=== PATIENT | female | born 1995 | race Caucasian/White ===

== ENCOUNTER 2024-08-03 08:59 | Emergency (ER) | payer BC ==
[2024-08-03] MEDS: Prochlorperazine 10 MG/2 ML SDV IVPUSH ONE (10:13)
[2024-08-03] MEDS: Sodium Chloride 0.9% 1,000 ML IV ONE (10:13)
[2024-08-03 10:17] LABS: BASE EXCESS VENOUS -0.1 mm/L; BASOPHILS PERCENT AUTO 0.2 % (0.1-1.3); BICARBONATE,VENOUS 21.7 mmol/L; CARBOXYHEMOGLOBIN 1.1 % (0.0-1.6); HEMATOCRIT 41.5 % (34.3-46.0); HEMOGLOBIN 15.1 g/dL (11.2-15.5); IMMATURE GRAN ABSOLUTE AUTO 0.03 K/uL (0.00-0.23); IMMATURE GRAN PERCENT AUTO 0.2 % (0.0-0.7); LYMPHOCYTES ABSOLUTE AUTO 0.74 K/uL (0.8-3.3); LYMPHOCYTES PERCENT AUTO 6.1 % (11.4-47.7); MEAN CORPUSCULAR HEMOGLOBIN 30.8 pg (31.6-35.5); MEAN CORPUSCULAR HGB CONC 36.4 g/dL (31.6-35.5); MEAN CORPUSCULAR VOLUME 84.5 fL (81.4-99.0); METHEMOGLOBIN 0.7 %; MONOCYTES ABSOLUTE AUTO 0.45 K/uL (0.20-0.90); MONOCYTES PERCENT AUTO 3.7 % (3.3-12.6); NEUTROPHILS ABSOLUTE AUTO 10.89 K/uL (1.0-7.6); NEUTROPHILS PERCENT AUTO 89.8 % (40.0-78.1); OXYHEMOGLOBIN 62.8 %; PCO2 VENOUS 29.4 mm/Hg; PH,VENOUS 7.481 (7.350-7.450); PLATELET COUNT,PLT 299 K/uL (130-375); RED BLOOD CELL COUNT 4.91 M/uL (3.77-5.24); TOTAL HEMOGLOBIN 15.8 g/dL (12.0-16.0); WHITE BLOOD CELL COUNT,WBC 12.1 K/uL (3.2-11.0)
[2024-08-03 10:19] LABS: PO2 VENOUS 34.2 mm/Hg
[2024-08-03 10:20] LABS: BASOPHILS ABSOLUTE AUTO 0.02 K/uL (0.00-0.10)
[2024-08-03 10:37] LABS: A/G RATIO 1.3 (1.2-2.2); ALANINE AMINOTRANSFERASE,ALT 12 U/L (12-78); ALKALINE PHOSPHATASE 66 U/L (46-116); ASPARTATE AMNIOTRANSFERASE,AST 12 U/L (15-37); BILIRUBIN TOTAL 0.9 mg/dL (0.2-1.0); BLOOD UREA NITROGEN,BUN 14 mg/dL (7-18); CALCIUM 10.3 mg/dL (8.5-10.1); CARBON DIOXIDE,CO2 23 mmol/L (21-32); CHLORIDE,CL 99 mmol/L (100-108); CREATININE 1.1 mg/dL (0.6-1.0); EST CRCL DRUG DOSING (CG) 65.16 mL/min; ESTIMATED GFR 70 mL/min (>60); GLUCOSE RANDOM 115 mg/dL (74-106); PROTEIN TOTAL,TP 8.9 g/dL (6.4-8.2); SODIUM,NA 141 mmol/L (140-148)
[2024-08-03] MEDS: NS + KCl 20mEq/L 1,000 ML IV SCH (11:04)
[2024-08-03 11:17] LABS: LYME AB IgG Negative (Negative); LYME AB IgM Negative (Negative)
[2024-08-03 12:00] LABS: APPEARANCE,URINE CLOUDY (CLEAR); BILIRUBIN,URINE NEGATIVE (NEGATIVE); COLOR,URINE YELLOW (YELLOW); GLUCOSE,URINE NEGATIVE (NEGATIVE); KETONES,URINE >=160 mg/dL (NEGATIVE); LEUKOCYTE ESTERASE,URINE NEGATIVE (NEGATIVE); NITRITE,URINE POSITIVE (NEGATIVE); OCCULT BLOOD,URINE NEGATIVE (NEGATIVE); PROTEIN,URINE 30 mg/dL (NEGATIVE); UROBILINOGEN,URINE 0.2 EU/dL (0.2-1.0)
[2024-08-03] MEDS: Sodium Chloride 0.9% 80 ML IV SCH (12:00)
[2024-08-03] MEDS: Iopamidol 612 MG/ML 100 ML Bottle IV SCH (12:00)
[2024-08-03 12:08] LABS: AMPHETAMINES SCREEN, URINE NEGATIVE (NEGATIVE); BARBITURATE SCREEN,URINE NEGATIVE (NEGATIVE); BENZODIAZEPINES SCREEN,URINE NEGATIVE (NEGATIVE); METHADONE SCREEN, URINE NEGATIVE (NEGATIVE); METHAMPHETAMINES SCREEN, URINE NEGATIVE (NEGATIVE); OXYCODONE SCREEN,URINE NEGATIVE (NEGATIVE); PROPOXYPHENE SCREEN,URINE NEGATIVE (NEGATIVE); THC SCREEN,URINE 50 NG/ML NEGATIVE (NEGATIVE)
[2024-08-03 12:09] LABS: AMORPHOUS SEDIMENT,URINE NOT SEEN; BACTERIA,URINE MANY; EPITHELIAL CELLS,URINE NOT SEEN; MUCUS,URINE NOT SEEN
[2024-08-03] MEDS ORDERED: Levofloxacin/Dextrose 5%-Water 500 MG in Premix Bag 1 BAG IV ONE (12:25)
== END 2024-08-03 14:03 | disposition home or self-care (01) ==
LOC: JP.ED 08:59
DX: K52.9 Noninfective gastroenteritis and colitis, unspecified (principal); E87.6 Hypokalemia; N30.00 Acute cystitis without hematuria; Z88.0 Allergy status to penicillin; Z79.899 Other long term (current) drug therapy
CPT/HCPCS: 36415; 74177; 80053; 80305-QW; 80307; 81001; 81025; 82803; 83605; 83690; 84702; 85025; 86618; 86666; 86753; 96361; 96365; 96366; 96375; 99284-25; J0780; J3480; J3490; J7030; Q9967

== ENCOUNTER 2024-08-05 07:39 | Emergency (ER) | payer BC ==
[2024-08-05 08:14] LABS: BASOPHILS PERCENT AUTO 0.2 % (0.1-1.3); HEMATOCRIT 36.8 % (34.3-46.0); HEMOGLOBIN 13.6 g/dL (11.2-15.5); IMMATURE GRAN ABSOLUTE AUTO 0.03 K/uL (0.00-0.23); IMMATURE GRAN PERCENT AUTO 0.3 % (0.0-0.7); LYMPHOCYTES ABSOLUTE AUTO 0.96 K/uL (0.8-3.3); LYMPHOCYTES PERCENT AUTO 10.3 % (11.4-47.7); MEAN CORPUSCULAR HEMOGLOBIN 30.6 pg (31.6-35.5); MEAN CORPUSCULAR VOLUME 82.9 fL (81.4-99.0); MONOCYTES ABSOLUTE AUTO 0.59 K/uL (0.20-0.90); MONOCYTES PERCENT AUTO 6.4 % (3.3-12.6); NEUTROPHILS ABSOLUTE AUTO 7.68 K/uL (1.0-7.6); NEUTROPHILS PERCENT AUTO 82.8 % (40.0-78.1); PLATELET COUNT,PLT 331 K/uL (130-375); RED BLOOD CELL COUNT 4.44 M/uL (3.77-5.24); WHITE BLOOD CELL COUNT,WBC 9.3 K/uL (3.2-11.0)
[2024-08-05 08:23] LABS: BASOPHILS ABSOLUTE AUTO 0.02 K/uL (0.00-0.10)
[2024-08-05 08:34] LABS: A/G RATIO 1.3 (1.2-2.2); ALANINE AMINOTRANSFERASE,ALT 4 U/L (12-78); ALBUMIN 4.5 g/dL (3.4-5.0); ALKALINE PHOSPHATASE 55 U/L (46-116); ASPARTATE AMNIOTRANSFERASE,AST 12 U/L (15-37); BILIRUBIN TOTAL 0.7 mg/dL (0.2-1.0); BLOOD UREA NITROGEN,BUN 10 mg/dL (7-18); CALCIUM 9.5 mg/dL (8.5-10.1); CARBON DIOXIDE,CO2 20 mmol/L (21-32); CHLORIDE,CL 97 mmol/L (100-108); CREATININE 1.1 mg/dL (0.6-1.0); EST CRCL DRUG DOSING (CG) 65.16 mL/min; ESTIMATED GFR 70 mL/min (>60); GLUCOSE RANDOM 104 mg/dL (74-106); POTASSIUM,K 3.4 mmol/L (3.6-5.2); PROTEIN TOTAL,TP 7.9 g/dL (6.4-8.2); SODIUM,NA 136 mmol/L (140-148)
[2024-08-05 08:35] LABS: ANION GAP 22.4 mmol/L (5.0-14.0); C-REACTIVE PROTEIN < 0.50 mg/dL (<0.50)
[2024-08-05] MEDS: Lactated Ringers 1,000 ML IV ONE (08:35)
[2024-08-05] MEDS: Prochlorperazine 10 MG/2 ML SDV IVPUSH ONE (08:39)
[2024-08-05] MEDS: Lactated Ringers 1,000 ML ONE (08:39)
== END 2024-08-05 09:48 | disposition home or self-care (01) ==
LOC: JP.ED 07:39
DX: K52.9 Noninfective gastroenteritis and colitis, unspecified (principal); Z79.899 Other long term (current) drug therapy; Z88.0 Allergy status to penicillin
CPT/HCPCS: 36415; 80053; 83690; 85025; 86140; 96361; 96374; 99284; J0780; J7120

== ENCOUNTER 2024-08-06 18:30 | Emergency (ER) | payer BC ==
[2024-08-06] MEDS: Prochlorperazine 10 MG/2 ML SDV IVPUSH ONE (20:03)
[2024-08-06] MEDS: Sodium Chloride 0.9% 10 ML Syringe FLUSH PRN (20:04)
[2024-08-06] MEDS: Lactated Ringers 1,000 ML IV ONE (20:04)
[2024-08-06 20:07] LABS: BASOPHILS ABSOLUTE AUTO 0.03 K/uL (0.00-0.10); BASOPHILS PERCENT AUTO 0.3 % (0.1-1.3); EOSINOPHILS ABSOLUTE AUTO 0.02 K/uL (0.00-0.40); EOSINOPHILS PERCENT AUTO 0.2 % (0.0-5.4); HEMATOCRIT 38.6 % (34.3-46.0); HEMOGLOBIN 13.9 g/dL (11.2-15.5); IMMATURE GRAN ABSOLUTE AUTO 0.03 K/uL (0.00-0.23); IMMATURE GRAN PERCENT AUTO 0.3 % (0.0-0.7); LYMPHOCYTES ABSOLUTE AUTO 0.78 K/uL (0.8-3.3); LYMPHOCYTES PERCENT AUTO 8.6 % (11.4-47.7); MEAN CORPUSCULAR HEMOGLOBIN 30.8 pg (31.6-35.5); MEAN CORPUSCULAR VOLUME 85.6 fL (81.4-99.0); MONOCYTES ABSOLUTE AUTO 0.43 K/uL (0.20-0.90); MONOCYTES PERCENT AUTO 4.8 % (3.3-12.6); NEUTROPHILS ABSOLUTE AUTO 7.75 K/uL (1.0-7.6); NEUTROPHILS PERCENT AUTO 85.8 % (40.0-78.1); PLATELET COUNT,PLT 335 K/uL (130-375); RED BLOOD CELL COUNT 4.51 M/uL (3.77-5.24)
[2024-08-06 20:22] LABS: CALCIUM 9.5 mg/dL (8.5-10.1); CREATININE 1.2 mg/dL (0.6-1.0); EST CRCL DRUG DOSING (CG) 59.73 mL/min
[2024-08-06 20:29] LABS: APPEARANCE,URINE SLIGHTLY CLOUDY (CLEAR); BILIRUBIN,URINE MODERATE (NEGATIVE); COLOR,URINE YELLOW (YELLOW); GLUCOSE,URINE NEGATIVE (NEGATIVE); KETONES,URINE 80 mg/dL (NEGATIVE); LEUKOCYTE ESTERASE,URINE NEGATIVE (NEGATIVE); NITRITE,URINE NEGATIVE (NEGATIVE); OCCULT BLOOD,URINE TRACE-INTACT (NEGATIVE); PROTEIN,URINE 30 mg/dL (NEGATIVE)
[2024-08-06 20:37] LABS: RBC,URINE 0-5 (0-5); WBC,URINE 0-5 (0-5)
[2024-08-06 20:38] LABS: AMORPHOUS SEDIMENT,URINE FEW; BACTERIA,URINE OCCASIONAL; EPITHELIAL CELLS,URINE OCCASIONAL; MUCUS,URINE MODERATE
[2024-08-06] MEDS: Sodium Chloride 0.9% 1,000 ML IV SCH (21:11)
[2024-08-06] MEDS: Potassium Chloride 20 MEQ Tab.ER PO SCH (21:11)
[2024-08-06] MEDS: Potassium Chloride 10 MEQ in Premix Bag 1 BAG IV ONE (21:11)
== END 2024-08-06 23:25 | disposition home or self-care (01) ==
LOC: JP.ED 18:30
DX: R11.2 Nausea with vomiting, unspecified (principal); E87.6 Hypokalemia; Z86.16 Personal history of COVID-19; Z79.899 Other long term (current) drug therapy; Z88.0 Allergy status to penicillin
CPT/HCPCS: 36415; 74018; 80048; 81001; 83605; 85025; 85379; 96361; 96365; 96366; 96375; 99284-25; A9270-GY; J0780; J3480; J3490; J7030; J7120; U0002